=== PATIENT | male | born 1955 | race Caucasian/White ===

== ENCOUNTER 2017-07-03 16:09 | Emergency (ER) | payer MEDICARE ==
[~2017-07-03] VITALS: Ht 165.1 cm; Wt 82.0 kg
[~2017-07-03 16:09] MED LIST: ANTI12.5 PO; VENTAER INH
[2017-07-03 16:11] VITALS: BP 161/99; PULSE 114; RESP 20; TEMP 99.4; O2SAT 98
[2017-07-03 16:22] VITALS: BP 168/73; PULSE 106; RESP 16; O2SAT 96
[2017-07-03 16:40] VITALS: O2SAT 98
--- NOTE | 2017-07-03 16:57 | PD ---
HPI Chief Complaint: Chest Pain Time Seen by Provider: 16:27 Travel History International Travel<30 days: No Contact w/Intl Traveler<30days: No Traveled to known affect area: No History of Present Illness HPI Patient is a 61-year-old male presents emergency Department with intermittent chest pain for the past month particularly when he swallows milk. He states the pain is right in the middle of his chest without radiation, it was some mild nausea. No shortness of breath no diarrhea no vomiting no blood in the stool. There is no difference with exertion, he does use a cigarettes. Denies history of high blood cholesterol. Is followed by his primary care physician and follows [facility] [email or web address] [facility]. States pain is mild, worsens with swallowing, middle of his chest without radiation. 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[employer]) Social History Alcohol Use: Yes (OCCASIONAL) Tobacco Use: Yes (PPD) Substance Use: No (DENIES) Allergies-Medications (Allergen,Severity, Reaction): Coded Allergies: No Known Allergies (Unverified , 07/03/17) Reported Meds & Prescriptions Reported Meds & Active Scripts Active Omeprazole 40 Mg Cap 40 Mg PO DAILY Antivert (Meclizine HCl) 12.5 Mg Tab 12.5 Mg PO Q4-6HPRN Ventolin Hfa (Albuterol Sulfate) 18 Gm Aero 2 Puff INH Q6HPRN * SHAKE WELL BEFORE USE * Review of Systems Except as stated in HPI: all other systems reviewed are Neg Physical Exam Narrative GENERAL: Well-developed well-nourished, unkempt in no distress. SKIN: Warm and dry. HEAD: Atraumatic. Normocephalic. EYES: Pupils equal and round. No scleral icterus. No injection or drainage. ENT: No nasal bleeding or discharge. Mucous membranes pink and moist. NECK: Trachea midline. No JVD. CARDIOVASCULAR: Regular rate and rhythm. 2+ bilateral equal pulses in all 4 extremities. RESPIRATORY: No accessory muscle use. Clear to auscultation. Breath sounds equal bilaterally. GASTROINTESTINAL: Abdomen soft, non-tender, nondistended. Hepatic and splenic margins not palpable. MUSCULOSKELETAL: Extremities without clubbing, cyanosis, or edema. No obvious deformities. NEUROLOGICAL: Awake and alert. No obvious cranial nerve deficits. Motor grossly within normal limits. Five out of 5 muscle strength in the arms and legs. Normal speech. PSYCHIATRIC: Appropriate mood and affect; insight and judgment normal. Data Data Last Documented VS Vital Signs Date Time Temp Pulse Resp B/P (MAP) Pulse Ox O2 Delivery O2 Flow Rate FiO2 07/03/17 19:10 94 18 158/96 (116) 97 07/03/17 18:28 Room Air 07/03/17 16:11 99.4 Orders Orders Electrocardiogram (07/03/17:27) Ckmb (Isoenzyme) Profile (07/03/17:) Complete Blood Count With Diff (07/03/17) Comprehensive Metabolic Panel (07/03/17) Magnesium (Mg) (07/03/17) Prothrombin Time / Inr (Pt) (07/03/17) Act Partial Throm Time (Ptt) (07/03/17) Troponin I (07/03/17) Chest, Single Ap (07/03/17:) Ecg Monitoring (07/03/17) Iv Access Insert/Monitor (07/03/17) Oximetry (07/03/17:) Oxygen Administration (07/03/17:) Lipase (07/03/17 16:55) Sodium Chloride 0.9% Flush (Ns Flush) (07/03/17 17:00) Al-Mag Hy-Si 40-40-4 Mg/Ml Liq (Mag-Al P (07/03/17 17:00) Lidocaine 2% Viscous (Xylocaine 2% Visco (07/03/17 17:00) CKMB (07/03/17 16:30) CKMB% (07/03/17 16:30) Ed Discharge Order (07/03/17 19:03) Labs Laboratory Tests Test 07/03/17 16:30 White Blood Count 11.8 TH/MM3 Red Blood Count 4.70 MIL/MM3 Hemoglobin 14.5 GM/DL Hematocrit 41.8 % Mean Corpuscular Volume 89.1 FL Mean Corpuscular Hemoglobin 30.8 PG Mean Corpuscular Hemoglobin Concent 34.6 % Red Cell Distribution Width 13.8 % Platelet Count 336 TH/MM3 Mean Platelet Volume 8.1 FL Neutrophils (%) (Auto) 70.5 % Lymphocytes (%) (Auto) 19.9 % Monocytes (%) (Auto) 7.0 % Eosinophils (%) (Auto) 1.8 % Basophils (%) (Auto) 0.8 % Neutrophils # (Auto) 8.3 TH/MM3 Lymphocytes # (Auto) 2.3 TH/MM3 Monocytes # (Auto) 0.8 TH/MM3 Eosinophils # (Auto) 0.2 TH/MM3 Basophils # (Auto) 0.1 TH/MM3 CBC Comment DIFF FINAL Differential Comment Prothrombin Time 11.8 SEC Prothromb Time International Ratio 1.1 RATIO Activated Partial Thromboplast Time 30.4 SEC Blood Urea Nitrogen 24 MG/DL Creatinine 1.01 MG/DL Random Glucose 118 MG/DL Total Protein 7.8 GM/DL Albumin 3.4 GM/DL Calcium Level 8.7 MG/DL Magnesium Level 2.0 MG/DL Alkaline Phosphatase 109 U/L Aspartate Amino Transf (AST/SGOT) 29 U/L Alanine Aminotransferase (ALT/SGPT) 40 U/L Total Bilirubin 0.4 MG/DL Sodium Level 136 MEQ/L Potassium Level 3.8 MEQ/L Chloride Level 103 MEQ/L Carbon Dioxide Level 24.7 MEQ/L Anion Gap 8 MEQ/L Estimat Glomerular Filtration Rate 75 ML/MIN Total Creatine Kinase 126 U/L Creatine Kinase MB 1.6 NG/ML Troponin I 0.02 NG/ML Lipase 146 U/L MDM Medical Decision Making Medical Screen Exam Complete: Yes Emergency Medical Condition: Yes Differential Diagnosis GERD, ulcer, achalasia, ACS seems unlikely. Narrative Course patient roomed in emergency department, highly atypical chest pain worsens with drinking milk. The patient cardiac enzyme and EKG negative. The patient has been having symptoms for some time. Discussed need follow-up with his primary care physician of [facility]. No indication further workup at this time. He stable for discharge Diagnosis Primary Impression: Chest pain Qualified Codes: R07.9 - Chest pain, unspecified Med/Other Pt SpecificInfo: Prescription(s) given Scripts Omeprazole (Omeprazole) 40 Mg Cap 40 MG PO DAILY, #30 CAP 0 Refills Prov: Antione Burrell MD 07/03/17 Disposition: 01 DISCHARGE HOME Condition: Stable Antione Burrell MD Jul 03, 2017 16:57
[2017-07-03 16:59] LABS: AUTOMATED NEUTROPHIL # 8.3 TH/MM3 (1.8-7.7); BASOPHIL # 0.1 TH/MM3 (0-0.2); BASOPHIL % 0.8 % (0.0-2.0); EOSINOPHIL # 0.2 TH/MM3 (0-0.4); EOSINOPHIL % 1.8 % (0.0-4.0); HEMATOCRIT 41.8 % (39.0-51.0); HEMO FLAGS DIFF FINAL; LYMPH % 19.9 % (9.0-44.0); LYMPHOCYTE # 2.3 TH/MM3 (1.0-4.8); MEAN CELL VOLUME 89.1 FL (80.0-100.0); MEAN CORPUSCULAR HEMOGLOBIN 30.8 PG (27.0-34.0); MEAN CORPUSCULAR HGB CONC 34.6 % (32.0-36.0); NEUT % 70.5 % (16.0-70.0); PLATELET COUNT 336 TH/MM3 (150-450); RED CELL DISTRIBUTION WIDTH 13.8 % (11.6-17.2); WHITE BLOOD COUNT 11.8 TH/MM3 (4.0-11.0)
[2017-07-03] MEDS ORDERED: SODIUM CHLORIDE 0.9% FLUSH 10 ML FLUSH IV FLUSH PRN (17:00)
[2017-07-03] MEDS ORDERED: ALUMINUM/MAGNESIUM/SIMETH 30 ML CUP PO ONE (17:00)
[2017-07-03] MEDS ORDERED: LIDOCAINE VISCOUS 2% SOLN 15 ML UDC PO ONE (17:00)
--- NOTE | 2017-07-03 17:08 | RADRPT ---
EXAM DATE/TIME: 07/03/2017 16:29 [facility] COMPARISON: No previous studies available for comparison. INDICATIONS : Chest pain and shortness of breath. MEDICAL HISTORY : Stroke. Anxiety. Depression. SURGICAL HISTORY : None. ENCOUNTER: Initial ACUITY: 3 days PAIN SCORE: 8/10 LOCATION: Bilateral chest FINDINGS: A single view of the chest demonstrates the lungs to be symmetrically aerated without evidence of mas s, infiltrate or effusion. The cardiomediastinal contours are unremarkable. Osseous structures are intact. CONCLUSION: 1. No acute cardiopulmonary findings. Elmer Morales MD on July 03, 2017 at 17:06 Board Certified Radiologist. This report was verified electronically.
[2017-07-03 17:10] LABS: APTT (PATIENT) 30.4 SEC (24.3-30.1); INTERNATIONAL NORMALIZED RATIO 1.1 RATIO; PROTHROMBIN TIME - PATIENT 11.8 SEC (9.8-11.6)
[2017-07-03 17:30] LABS: ALKALINE PHOSPHATASE 109 U/L (45-117); ALT (GPT) 40 U/L (12-78); CREATINE KINASE 126 U/L (39-308); TOTAL BILIRUBIN ADULT 0.4 MG/DL (0.2-1.0)
[2017-07-03 17:33] LABS: ANION GAP 8 MEQ/L (5-15); AST (GOT) 29 U/L (15-37); BICARBONATE 24.7 MEQ/L (21.0-32.0); BLOOD UREA NITROGEN 24 MG/DL (7-18); CHLORIDE 103 MEQ/L (98-107); GLOMERULAR FILTRATION RATE 75 ML/MIN (>89); POTASSIUM 3.8 MEQ/L (3.5-5.1); SODIUM (NA) 136 MEQ/L (136-145)
[2017-07-03 17:42] LABS: CKMB 1.6 NG/ML (0.5-3.6)
[2017-07-03 18:28] VITALS: BP 162/98; PULSE 75; RESP 18; O2SAT 96
[2017-07-03] MEDS ORDERED: OMEP40CA2 PO (19:02)
[2017-07-03 19:10] VITALS: BP 158/96
--- NOTE | 2017-07-04 18:04 | EKG ---
Date Performed: 07/03/2017 Time Performed: 16:34:45 PTAGE: 61 years EKG: Sinus rhythm WITH MARKED SINUS ARRHYTHMIA INDETERMINATE AXIS MINIMAL ST DEPRESSION ABNORMAL ECG NO PREVIOUS TRACING DOCTOR: Antoni Chen Interpretating Date/Time 07/04/2017 18:02:44
== END 2017-07-03 19:44 | disposition home or self-care (01) ==
LOC: NEPC 16:09
DX: R07.89 Other chest pain (principal); R94.31 Abnormal electrocardiogram [ECG] [EKG]; F20.9 Schizophrenia, unspecified; I10 Essential (primary) hypertension; F17.200 Nicotine dependence, unspecified, uncomplicated; Z79.899 Other long term (current) drug therapy
CPT/HCPCS: 71010; 80053; 82550; 82552; 83690; 83735; 84484; 85025; 85610; 85730; 93005